=== PATIENT | male | born 1955 | race Caucasian/White ===

== ENCOUNTER 2021-12-13 00:28 | Outpatient (CLI) | payer MEDICARE, SELFPAY ==
--- NOTE | 2021-12-13 08:15 | DI.US_ITS ---
Exam(s) US NEEDLE LOCAL OTHER WO RAD EXAM: US NEEDLE LOCAL OTHER WO RAD CLINICAL HISTORY: thyroid nodule,e04.1, ultrasound guided biopsy. COMPARISON: No exams were available for comparison TECHNIQUE: Real-time ultrasound was provided for Dr. Patel for guidance with performing biopsy of l eft thyroid nodule. FINDINGS: The thyroid nodule in the was again identified in the left lobe. Biopsy was performed by Dr. Patel. Please see procedure note for details. IMPRESSION: Successful Ultrasound-guided biopsy of left thyroid nodule.. DATA REPOSITORY:
--- NOTE | 2021-12-13 13:10 | PAPNONF_PTH ---
PATIENT: Chapo Maddox LOC: [facility] U#:[id number] AGE/SX: 65/M ROOM: RE12/13/[address]: Farhan Patel MD : [id number] BED: DIS: 12/13/2021 SPEC #: [id number] RECD: 12/13/21 13:27 STATUS: CHARLA REMelvin #: [id number] RJ: 12/13/21 13:[address]: Farhan Patel DEPT: [facility] Cytology RECD BY: Silvia Taylor ENTERED: 12/13/21 13:27 SP TYPE: SEBASTI[facility]N VIVEROS DR: Kevin Cazares Tissues: 1 - BODY FLUID CYTO-FINE NEEDLE [facility]ATE[facility] Procedures: BODY FLUID CYTO-FINE NEEDLE ASPIRATE[facility] Comments: [id number]
--- NOTE | 2021-12-13 16:53 | W.PROCNOTE ---
Procedure Note Date of procedure: 12/13/21 Procedure: Ultrasound-guided FNA, left thyroid nodule Surgeon/Proceduralist/Physician: Farhan Patel Procedure Diagnosis: Left thyroid nodule, greater than 4 cm diameter Procedure Indications: The patient has a large left-sided thyroid nodule. He has previously undergone right thyroid lobectomy. Options were explained regarding further management. He elected to undergo the above procedure. Consent was filled out and signed prior to procedure. Procedure Description: The patient was positioned in the supine position and prepped and draped in appropriate fashion. 1% lidocaine with 1/100,000 epinephrine was injected adjacent to the nodule, after localizing the nodule with ultrasound. Following this, a 25-gauge needle was passed into the thyroid nodule repeatedly, and cellular adequacy was verified by pathology. 2 passes were made for potential Afirma testing. The patient tolerated the procedure well. There was no significant bleeding. Sterile dressing was applied. The patient was able to ambulate afterwards without difficulty and his vital signs remained stable. He will call if he does not hear from me within 7 days with regard to the FNA results. He had no further questions. He is comfortable with the plan.
== END 2021-12-13 00:48 ==
PROVIDERS: PCP Family Medicine; Visit Provider Otolaryngology
DX: E04.1 Nontoxic single thyroid nodule (principal)
CPT/HCPCS: 10005; 76942; 88104

== ENCOUNTER 2022-12-30 00:41 | Outpatient (CLI) | payer OTHER, SELFPAY ==
--- NOTE | 2022-12-30 08:00 | DI.US_ITS ---
Exam(s) US THYROID EXAM: US THYROID CLINICAL HISTORY: Assess for change,LT THYROID NODULE,E04.1. TECHNIQUE: Ultrasound thyroid performed using standard protocol. COMPARISON: US US NEEDLE LOCAL OTHER WO RAD from 12/13/2021 FINDINGS: RIGHT LOBE: Resected. No recurrence mass or fluid collection. LEFT LOBE: Left lobe occupied by large solid isoechoic nodule with smoothly marginated borders and a few macrocalcifications. No normal thyroid tissue is visible due to the large size of the nodule. N odule now measures 5.3 transverse by 3 cm AP by 7.9 cm in length. The length measurements are diffic ult to obtain since the nodule is larger than the field of view of the transducer. The nodule was me asured at 5.3 x 3 by 6 cm on the previous exam with a length likely underestimated. This nodule was biopsied previously. IMPRESSION: Likely stable size and appearance of large thyroid nodule. TI-RADS category4 DATA REPOSITORY:
== END 2022-12-30 01:01 ==
LOC: DI 00:41
PROVIDERS: PCP Family Medicine; Visit Provider Otolaryngology
DX: E04.1 Nontoxic single thyroid nodule (principal)
CPT/HCPCS: 76536